=== PATIENT | male | born 1980 | race African-American/Black ===

== ENCOUNTER 2018-11-23 23:42 | Emergency (ER) | payer BC, SELFPAY ==
[2018-11-23 23:43] VITALS: BP 138/89; PULSE 61; RESP 16; TEMP 35.6; O2SAT 100; BMI 26.6
--- NOTE | 2018-11-23 23:57 | ED.VISSUMM ---
- ER Visit Summary Date of Service: 11/23/18 Chief Complaint: Dental pain History of Present Illness: The patient is a 38 M left upper dental pain for the past 4 days. Hot and cold sensitivities. No fevers. Tobacco history. Started on off after chipping his tooth a year ago. Has not seen a dentist. Using ibuprofen and Orajel with no relief, states last ibuprofens 8 PM. No history of gastric ulcers or kidney injury. No history of cirrhosis or liver issues Physical Examination: General: Alert and oriented ?3, no acute distress HEENT: Normocephalic, atraumatic. Moist mucosa membranes. TMs normal bilaterally. There is a chip to tooth #14, tender to percussion. No focal abscess. Airway patent. Neck: supple, nontender. Cardiovascular: Regular rate and rhythm, no murmurs Respiratory: Normal breath sounds, symmetric, no distress Abdomen: Soft, nontender, nondistended Extremities: Nontender, no edema, pulses intact ?4 Neuro: no focal neurological deficits. Test Results: [] Emergency Department Course and Treatment: Patient vitals stable focal dental caries with no abscess. He started on penicillin given Tylenol. He is given follow-up with dental list to choose for definitive care. Continue Tylenol and ibuprofen. Treatment Plan: [] Disposition: Discharge Impression: 1. Odontalgia 2. Dental naeem This note was generated with [employer] dictation software. It may contain incorrect words, spelling, and punctuation that were not noted in review of the chart prior to signing ED Disposition - Plan for ED Patient: Disposition: Home or Assisted Living Diagnosis: Dental caries Instructions: ED Cavity Dental Prescriptions: Penicillin V Potassium 500 mg PO 4X/DAY #40 tablet Referrals: Care Physician,No Primary [Primary Care Provider] - Additional Instructions: Call from dental list to be seen for definitive treatment.
--- NOTE | 2018-11-24 00:02 | ED.DCSUM_ITS ---
- ER Visit Summary Date of Service: 11/23/18 Chief Complaint: Dental pain History of Present Illness: The patient is a 38 M left upper dental pain for the past 4 days. Hot and cold sensitivities. No fevers. Tobacco history. Started on off after chipping his tooth a year ago. Has not seen a dentist. Using ibuprofen and Orajel with no relief, states last ibuprofens 8 PM. No history of gastric ulcers or kidney injury. No history of cirrhosis or liver issues Physical Examination: General: Alert and oriented ?3, no acute distress HEENT: Normocephalic, atraumatic. Moist mucosa membranes. TMs normal bilaterally. There is a chip to tooth #14, tender to percussion. No focal a bscess. Airway patent. Neck: supple, nontender. Cardiovascular: Regular rate and rhythm, no murmurs Respiratory: Normal breath sounds, symmetric, no distress Abdomen: Soft, nontender, nondistended Extremities: Nontender, no edema, pulses intact ?4 Neuro: no focal neurological deficits. Test Results: [] Emergency Department Course and Treatment: Patient vitals stable focal dental caries with no abscess. He started on penicillin given Tylenol. He is given follow-up with dental list to choose for definitive care. Continue Tylenol and ibuprofen. Treatment Plan: [] Disposition: Discharge Impression: 1. Odontalgia 2. Dental naeem This note was generated with [employer] dictation software. It may contain incorrect words, spelling, and punctuation that were not noted in review of the chart prior to signing ED Disposition - Plan for ED Patient: Disposition: Home or Assisted Living Diagnosis: Dental caries Instructions: ED Cavity Dental Prescriptions: Penicillin V Potassium 500 mg PO 4X/DAY #40 tablet Referrals: Care Physician,No Primary [Primary Care Provider] - Additional Instructions: Call from dental list to be seen for definitive treatment.
[2018-11-24] MEDS: Acetaminophen 500 MG Tablet 1000 MG PO (00:03)
[2018-11-24] MEDS: Penicillin Vk 250 MG Tablet 500 MG PO (00:03)
[2018-11-24 00:04] VITALS: PULSE 78; RESP 16; O2SAT 100
== END 2018-11-24 00:05 | disposition home or self-care (01) ==
PROVIDERS: Emergency Provider Emergency Medicine
DX: K02.9 Dental caries, unspecified (principal)
CPT/HCPCS: 99283

== ENCOUNTER 2023-05-06 15:03 | Emergency (ER) | payer MEDICAID, SELFPAY ==
[2023-05-06 15:04] VITALS: BP 223/146; PULSE 92; RESP 16; TEMP 37; O2SAT 100; BMI 26.7
--- NOTE | 2023-05-06 15:37 | EX.ED.DYSGE1 ---
HPI History of Present Illness Chief Complaint: [facility] Medications penicillin V potassium 500 mg tablet 500 mg PO 4X/DAY #40 tabs 11/24/18 [Rx Last Taken Unknown] hydrochlorothiazide 12.5 mg capsule 12.5 mg PO DAILY #30 caps 05/06/23 [Rx Last Taken Unknown] Allergy/AdvReac Type Severity Reaction Status Date / Time acetaminophen [From Vicodin] AdvReac Nausea Verified 05/06/23 15:04 hydrocodone [From Vicodin] AdvReac Nausea Verified 05/06/23 15:04 Social History Smoking Status: Current every day smoker EXAM Physical Exam Const Vital Signs: 05/06/23 15:04 05/06/23 16:26 05/06/23 16:26 Temperature 98.6 F Temperature Source Temporal Pulse Rate 92 80 Respiratory Rate 16 16 Blood Pressure 223/146 H 154/119 H Blood Pressure Mean 171 130 Pulse Ox 100 98 Oxygen Delivery Method Room Air Room Air Room Air MDM MDM MDM Narrative Medical decision making narrative: HISTORY OF PRESENT ILLNESS: 42-year-old male here with elevated blood pressure. He states he noticed some tingling in his left upper extremity approximately 3 hours ago. He denies any headache, focal visual change, focal loss of movement or sensation slurred speech or facial drooping. Denies history of strokes or taking blood thinners. Is never been on antihypertensive medicines. Does have history of using methamphetamine. Last use was 1 week ago. REVIEW OF SYSTEMS: Pertinent positives: Tingling, elevated blood pressure Pertinent negatives: Headache, loss of vision, loss of movement, loss sensation, slurred speech, chest pain, shortness of breath, decreased urination PHYSICAL EXAM: Nursing triage notes reviewed, Vital signs reviewed Constitutional: please see mdm HENT: MMM Eyes: Pupils equal round and reactive to light, Extraocular muscles intact Neck: No stridor, no JVD, full neck ROM Lungs: Clear to auscultation, No wheezing or rales. No increased work of breathing, no conversational dyspnea, no accessory muscle use, no nasal flaring. No respiratory distress noted Heart: Regular rate and rhythm, No murmurs, No rubs and No gallops, 2+ distal pulses (radial, femoral, posterior tibial) in all extremities Abdomen: Soft, there is no tenderness, rigidity, rebound or guarding, no obvious peritoneal signs, no palpable pulsatile abdominal masses, no auscultated abdominal bruit : No CVAT Extremities: No edema Neuro: Alert and oriented x3, neuro exam at baseline, cranial nerves II through XII are intact. No pain with extraocular muscle movement. There is negative test of skew. 5 of 5 strength in upper and lower extremities in flexion extension. Intact sensation to light touch in upper and lower extremity dermatomes. No truncal or extremity ataxia. No dysdiadochokinesia. Normal gait. 2+ reflexes in upper and lower extremities. No meningeal signs. Negative Babinski. NIH of 0. Skin: No rash or lesions noted MEDICAL DECISION MAKING: Chief Complaint: Elevated blood pressure External records reviewed: No recent ED visits or hospitalizations noted Factors affecting care: none Social determinants of health: Methamphetamine a use History obtained from others: none Consults: none [facility] Narrative: Patient was initially hypertensive otherwise hemodynamically stable, afebrile, nontoxic-appearing. Exam without focal neurologic deficits. NIH was 0. Low suspicion for ICH or stroke at this time despite the patient's complaint of tingling as he had no focal deficits and intact neuro vascular exam. I considered acute CVA however patient has a nonfocal neuro exam NIH of 0 and have a low suspicion for acute CVA at this time. I considered the following differential diagnosis: Elevated blood pressure, endorgan damage such as ACS, kidney damage, heart failure. Given the patient's elevated blood pressure both systolic and diastolic did treat with IV labetalol for emergent blood pressure control. Goal was decreasing patient's blood pressure by 20%. Patient blood pressure improved after this intervention. I obtained a broad lab and imaging work-up to further elucidate the etiology of the patient's complaints. ALL IMAGES (IF OBTAINED) HAVE BEEN PERSONALLY REVIEWED AND INTERPRETED BY MYSELF. EKG with normal sinus rhythm, normal axis, normal intervals, no ST or T wave changes to suggest ischemia. No evidence of WPW, Brugada, ARVD. I have personally reviewed the patient's chest x-ray. Chest x-ray is unremarkable for pulmonary edema, pneumothorax, pneumonia or focal cardiopulmonary abnormality. Troponin is negative, no evidence of myocardial ischemia BMP without evidence of significant electrolyte abnormalities, no anion gap, no acute kidney injury. CBC without leukocytosis, severe anemia, no thrombocytopenia. There is no signs of endorgan damage. Patient will be started on hydrochlorothiazide and given a primary doctor follow-up with. He was told to return if symptoms change or worsened. He agreed. Encourage patient to discontinue using methamphetamine or any other illicit drugs. Encouraged him to eat a healthy diet which is low in sodium high in fresh fruits vegetables and lean meats. Encouraged him to exercise regularly which I described as a 30-minute walk 4 times a week. The patient and/or family, caregivers express understanding. The patient and/or family, caregivers agrees with the plan. Shared decision making: I will have a discussion with the patient and or visitors regarding risk/benefits of further testing or admission. They will be made aware of of the risk/benefits inherent in this decision they will be given the opportunity to voice understanding. Total critical care time today provided was at least 0 minutes. This excludes separately billable procedures. Critical care time (if documented) is secondary to the patient having high probability of clinically significant/life threatening deterioration in the patient's condition which required my urgent intervention. Impression: 1. Hypertension 2. History of methamphetamine use Dispo: Discharge Lab Data Labs: Laboratory Results - last 24 hr 05/06/23 15:55 WBC 11.2 H RBC 5.29 Hgb 14.7 Hct 45.6 MCV 86.2 MCH 27.8 MCHC 32.2 RDW Std Deviation 41.9 RDW Coeff of Courtney 13.2 Plt Count 272 MPV 10.2 Immature Gran % (Auto) 0.300 Neut % (Auto) 60.6 Lymph % (Auto) 30.8 Gregory % (Auto) 6.0 Eos % (Auto) 1.9 Baso % (Auto) 0.4 Absolute Neuts (auto) 6.8 Absolute Lymphs (auto) 3.44 Nucleated RBC % 0 Sodium 138 Potassium 3.8 Chloride 106 Carbon Dioxide 26.0 Anion Gap 6 BUN 9 Creatinine 1.04 Estim Creat Clear Calc 90.64 Est GFR (MDRD) Af Amer 99 Est GFR (MDRD) Non-Af 82 BUN/Creatinine Ratio 8.7 L Glucose 107 H Calcium 9.0 Troponin I High Sens 15 Radiography Diagnostic Testing: Clinical Impression(s) from Imaging Studies Chest X-Ray 05/06/23 15:50 IMPRESSION: No radiographic evidence of acute cardiopulmonary disease. Electronically Signed: Wayne Burnett MD at 16:52 EDT , Discharge Plan Triage Chief Complaint: Hypertension ED Provider: Vitaliy Carlson Dx/Rx/DC Orders Instructions: ED High Blood Pressure Hypertension Prescriptions: New hydrochlorothiazide 12.5 mg capsule 12.5 mg PO DAILY Qty: 30 0RF No Action penicillin V potassium 500 MG tablet 500 mg PO 4X/DAY Qty: 40 0RF Primary Care Provider: Care Physician,No Primary Referrals: Shant Jiang MD [Med Staff - Active Staff] - Activity Restrictions/Additional Instructions: Thank you for trusting us with your care today! Please begin taking prescribed blood pressure medicine daily Please return to the emergency department if your symptoms change or worsen. Specifically develop headache, focal numbness, weakness, loss of sensation, chest pain, shortness of breath or decreased urination. Please follow with your primary care physician for further outpatient evaluation and management. Disposition Disposition: Home, Self Care
--- NOTE | 2023-05-06 15:50 | RAD_ITS ---
EXAM: XR CHEST, 1 VIEW CLINICAL INDICATION: Hypertension TECHNIQUE: Frontal view of the chest. COMPARISON: No relevant prior studies available. FINDINGS: LUNGS AND PLEURAL SPACES: Unremarkable. No consolidation or edema. No pneumothorax. No effusion. HEART: Unremarkable. Cardiac silhouette not enlarged. MEDIASTINUM: Central airways and mediastinal contour are unremarkable. BONES/JOINTS: Unremarkable. SOFT TISSUES: Unremarkable. RAD/Chest 1 View (Portable) IMPRESSION: No radiographic evidence of acute cardiopulmonary disease. Electronically Signed: Wayne Burnett MD at 16:52 EDT ,
--- NOTE | 2023-05-06 16:02 | NURSING ---
NO OLD EKG
[2023-05-06] MEDS: Labetalol (Prefilled) 20 MG/4 ML 10 MG IV (16:15)
[2023-05-06 16:26] VITALS: BP 154/119; PULSE 80; RESP 16; O2SAT 98
[2023-05-06 16:26] LABS: Absolute Lymphocyte Count 3.44 X10^3/uL (0.83-4.51); Absolute Neutrophil Count 6.8 X10^3/uL (2.0-7.7); Basophil# 0.05 X10^3/uL; Basophil% 0.4 % (0-1); Eosinophil# 0.21 X10^3/uL; Eosinophils% 1.9 % (0-5); Hematocrit 45.6 % (40-54); Hemoglobin 14.7 g/dL (13.0-16.5); Lymphocyte # 3.44 X10^3/ul (0.83-4.51); Lymphocyte % 30.8 % (19-41); Mean Corp Hgb Conc 32.2 g/dL (32-36); Mean Corpuscular Hgb 27.8 pg (27.0-32.0); Mean Corpuscular Volume 86.2 fL (80-94); Mean Platelet Vol. 10.2 fl (6.2-12.0); Monocyte# 0.67 X10^3/uL; NRBC Flagged by Analyzer 0 % (0-5); Neutrophil # 6.77 X10^3/uL (2.7-7.7); Neutrophil % 60.6 % (47-70); Platelet Count 272 K/mm3 (150-450); RBC Distribution Width CV 13.2 % (11.6-14.6); RBC Distribution Width SD 41.9 fl (35.1-43.9); Red Blood Count 5.29 M/mm3 (4.6-6.2); White Blood Count 11.2 K/mm3 (4.4-11.0)
[2023-05-06 16:37] LABS: Anion Gap 6 (5-15); BUN 9 mg/dL (7-18); BUN/Creat Ratio 8.7 RATIO (10-20); Chloride 106 mmol/L (98-107); Creatinine, Serum 1.04 mg/dL (0.70-1.30); EST Glomerular Filtration Rate 82 mL/min (>60); Est Glom Filt Rate - Afr Amer 99 mL/min (>60); Estimated Creatinine Clearance 90.64 ml/min; Glucose 107 mg/dL (74-106); Potassium 3.8 mmol/L (3.5-5.1); Sodium Level 138 mmol/L (136-145); Troponin-I HS 15 pg/mL (3.0-78.0)
[2023-05-06 18:19] LABS: BNP,B-Type NATRIURETIC PEPTIDE 13.8 pg/mL (0-100)
== END 2023-05-06 17:56 | disposition home or self-care (01) ==
PROVIDERS: Emergency Provider Emergency Medicine; Visit Provider Emergency Medicine
DX: I10 Essential (primary) hypertension (principal); F17.200 Nicotine dependence, unspecified, uncomplicated
CPT/HCPCS: 71045; 80048; 83880; 84484; 85025; 93005; 96374; 99284; A4216

== ENCOUNTER 2023-05-26 04:48 | Emergency (ER) | payer MEDICAID, SELFPAY ==
[2023-05-26 04:49] VITALS: BP 192/125; PULSE 105; RESP 16; TEMP 36.2; O2SAT 100; BMI 25.9
[2023-05-26 05:02] VITALS: BP 190/123; PULSE 100; RESP 16; O2SAT 97
--- NOTE | 2023-05-26 05:22 | EDS_ITS ---
HPI History of Present Illness Chief Complaint: Other, Pain/Inj Informant: patient Narrative Narrative: Patient is a 43-year-old male with past medical history of hypertension as well as occasional methamphetamine use. He reports that he will occasionally get sp asms and noted that about 2 days ago he was having spasms in his right neck which worsened recently. He denies any excessive activity or trauma states he has difficulty turning his head secondary to the spasm along the right side of his neck and with this presents for evaluation. PFSH PFSH Medical History Hypertension Smoker Home Medications penicillin V potassium 500 mg tablet 500 mg PO 4X/DAY #40 tabs 11/24/18 [Rx Last Taken Unknown] hydrochlorothiazide 12.5 mg capsule 12.5 mg PO DAILY #30 caps 05/06/23 [Rx Last Taken Unknown] gabapentin 100 mg capsule 100 mg PO TID 30 days #90 caps 05/26/23 [Rx Last Taken Unknown] methocarbamol 500 mg tablet 1,000 mg (2 x 500 mg) PO 4X/DAY PRN Muscle pain/spasm #56 tabs 05/26/23 [Rx Last Taken Unknown] Allergy/AdvReac Type Severity Reaction Status Date / Time acetaminophen [From Vicodin] AdvReac Nausea Verified 05/06/23 15:04 hydrocodone [From Vicodin] AdvReac Nausea Verified 05/06/23 15:04 Social History Smoking Status: Current every day smoker tobacco type: cigarettes ROS ROS ED Constitutional Constitutional ED: Denies chills or fever(s) Eyes Eyes: Denies change in vision ENT ENT ED: Denies sore throat Cardiovascular Cardiovascular: Denies chest pain Respiratory/Chest Respiratory/Chest: Denies cough or dyspnea Gastrointestinal Gastrointestinal: Denies abdominal pain, diarrhea, nausea or vomiting Genitourinary Genitourinary ED: Denies dysuria Musculoskeletal Musculoskeletal: Reports neck pain Integumentary Denies rash Neurologic Neurologic: Denies headache(s), paresthesias or weakness Hematologic/Lymphatic Hematologic/Lymphatic: Denies easy bleeding or easy bruising EXAM Physical Exam Const Vital Signs: 05/26/23 04:49 05/26/23 05:02 05/26/23 05:38 Temperature 97.2 F L Temperature Source Oral Pulse Rate 105 H 100 97 Respiratory Rate 16 16 16 Blood Pressure 192/125 H 190/123 H 180/125 H Blood Pressure Mean 147 145 143 Pulse Ox 100 97 97 Oxygen Delivery Method Room Air Room Air Positive well nourished and well developed General Appearance ED: well developed HEENT HEENT Narrative: Normocephalic atraumatic Eyes PERRL and EOMs intact bilaterally Neck Neck Narrative: No bony deformity or step-off of the cervical spine no midline pain with palpation There is tenderness and spasm noted of the right paracervical muscle mainly the sternocleidomastoid muscle that worsens with side bending and rotation. No carotid bruit noted Resp normal respiratory effort and clear to auscultation bilaterally Cardio regular rate and regular rhythm Rate: other Other Details: Radial and carotid pulses are equal and symmetric Extremity normal to inspection Extremity Narrative: Bilateral upper extremities are neurovascularly intact; AIN/PIN are intact and normal Neuro oriented x3, CN's II-XII intact bilaterally and no sensory deficits noted Sensorium / Orientation: alert Motor Exam: strength 5/5 throughout Psych mental status grossly normal Skin no rashes or lesions noted Skin Narrative: No erythema or warmth or ecchymosis or abrasion changes to suggest trauma or infection MDM MDM MDM Narrative Medical decision making narrative: Patient presented to the ER hypertensive but has a past medical history of this and was recently worked up for it. Therefore I felt no need for repeat evaluation of the persistent hypertension specialist patient states he has not followed up with a family physician to begin medication. The patient denied any trauma and there are no signs of this on exam and he does not have any midline neck pain and there is no signs of neurologic involvement so I felt no need for CT of the cervical spine as symptoms do not correlate with cervical radiculopathy. History and exam is consistent with a paraspinous or sternocleidomastoid muscle spasm. As patient had blood work done in the last few weeks which shows stable electrolytes I do not feel that he now has clinically significant electrolyte derangement such as hypo or hyperkalemia or hypo or hypernatremia and therefore do not feel need for repeat labs. Patient will be started on Robaxin and gabapentin secondary to his persistent symptoms but at this time as physical exam is indicating this is musculoskeletal in nature and not neurologic or vascular there is no need for further work-up and patient is otherwise safe for discharge. History & Record Review Discussion w/independent historian: Patient Discharge Plan Triage Chief Complaint: Other, Pain/Inj ED Provider: Wayne Oglesby Dx/Rx/DC Orders Clinical Impression: Spasm of cervical paraspinous muscle, Hypertension Instructions: ED Neck Spasm, No Trauma Prescriptions: New methocarbamol 500 mg tablet 1,000 mg PO 4X/DAY PRN (Reason: Muscle pain/spasm) Qty: 56 2RF gabapentin 100 mg capsule 100 mg PO TID 30 Days Qty: 90 0RF No Action penicillin V potassium 500 MG tablet 500 mg PO 4X/DAY Qty: 40 0RF Hold Instructions: not taking hydrochlorothiazide 12.5 mg capsule 12.5 mg PO DAILY Qty: 30 0RF Primary Care Provider: Care Physician,No Primary Referrals: Ava Lozoya DO [Med Staff - Active Staff] - Care Physician,No Primary [Primary Care Provider] - Activity Restrictions/Additional Instructions: He is follow-up with a primary care physician secondary to your persistent hypertension. Continue to stretch and heat your neck to reduce pain and spasm and using medications as directed. You have any further concerns or worsening symptoms please return to the ER for repeat evaluation Disposition Disposition: Home, Self Care Discharge Date/Time: 05/26/23 05:40
[2023-05-26] MEDS: oxyCODONE 5 MG Tablet 10 MG PO (05:35)
[2023-05-26] MEDS: Gabapentin 100 MG Capsule PO (05:35)
[2023-05-26] MEDS: Orphenadrine 60 MG/2 ML Ampul IM (05:36)
[2023-05-26 05:38] VITALS: BP 180/125; PULSE 97; RESP 16; O2SAT 97
== END 2023-05-26 05:40 | disposition home or self-care (01) ==
PROVIDERS: Emergency Provider Emergency Medicine; Visit Provider Emergency Medicine
DX: M62.838 Other muscle spasm (principal); I10 Essential (primary) hypertension; F17.210 Nicotine dependence, cigarettes, uncomplicated
CPT/HCPCS: 96372; 99282

== ENCOUNTER → 2023-09-17 | Outpatient (CLI) | payer MEDICAID, SELFPAY ==
[2023-09-17 13:57] LABS: Absolute Lymphocyte Count 3.34 X10^3/uL (0.83-4.51); Absolute Neutrophil Count 6.6 X10^3/uL (2.0-7.7); Basophil# 0.08 X10^3/uL; Basophil% 0.7 % (0-1); Eosinophil# 0.23 X10^3/uL; Eosinophils% 2.1 % (0-5); Hemoglobin 14.8 g/dL (13.0-16.5); Lymphocyte # 3.34 X10^3/ul (0.83-4.51); Lymphocyte % 30.7 % (19-41); Mean Corp Hgb Conc 32.9 g/dL (32-36); Mean Corpuscular Hgb 28.1 pg (27.0-32.0); Mean Corpuscular Volume 85.4 fL (80-94); Mean Platelet Vol. 9.8 fl (6.2-12.0); Monocyte# 0.62 X10^3/uL; Monocyte% 5.7 % (0-10); NRBC Flagged by Analyzer 0 % (0-5); Neutrophil # 6.58 X10^3/uL (2.7-7.7); Neutrophil % 60.6 % (47-70); Platelet Count 329 K/mm3 (150-450); RBC Distribution Width CV 12.6 % (11.6-14.6); RBC Distribution Width SD 39.4 fl (35.1-43.9); Red Blood Count 5.27 M/mm3 (4.6-6.2); White Blood Count 10.9 K/mm3 (4.4-11.0)
[2023-09-17 14:37] LABS: AST(SGOT) 18 U/L (15-37); Alanine Aminotransfer ALT/SGPT 23 U/L (16-61); Albumin, Serum 3.8 g/dL (3.2-5.0); Alkaline Phosphatase 116 U/L (45-117); Anion Gap 1 (5-15); BUN 13 mg/dL (7-18); BUN/Creat Ratio 12.7 RATIO (10-20); Calcium,Total 9.4 mg/dL (8.5-10.1); Chloride 99 mmol/L (98-107); Creatinine, Serum 1.02 mg/dL (0.70-1.30); EST Glomerular Filtration Rate 84 mL/min (>60); Est Glom Filt Rate - Afr Amer 101 mL/min (>60); Globulin 3.8 g/dL (2.2-4.2); Glucose 115 mg/dL (74-106); PSA,Total - Annual Screen 7.12 ng/mL (0.00-4.00); Potassium 2.9 mmol/L (3.5-5.1); Protein, Total 7.6 g/dL (6.4-8.2); Sodium Level 136 mmol/L (136-145)
--- OUTSIDE RECORDS SUMMARY | 2023-09-17 16:35 | XMS RPT_ITS | CCD ---
Author Name Unknown Address [address] [place] [address] Organization [facility] Care Team Providers Care Supervisor Assembling Name Role Phone Unavailable Primary Care Provider Unavailabl e Results Test Name Value Interpretation Reference Range Facil ity Encounters Encounter Date Encounter Type Care Provider Facility Start: 09-02-2023 Telephone encounter Arpita Log sdon Work Phone: [facility] Clinical Communication Social History Date Type Detail Facility Tobacco smoking stat NHIS Tobacco smoking consumption unknown [facility] Start: 1980 Sex Assigned At Not on file [facility] Gender identity Not on file [facility] Telephone encounter Note 09-02-2023 Telephone Encounter - Macy Toure - 09/02/2023 4:58 PM EST Note Date & Type Note Facility 09-02-2023 Telephone encounter Note Form atting of this note might be different from the original. error [facility] Note 09-02-2023 Telephone Encounter - Macy Toure - 09/02/2023 4:58 PM EST Note Date & Type Note Facility 09-02-2023 Miscellaneous Notes Formattin g of this note might be different from the original. error documented in this encounter [facility] Summary Purpose Family History No Family History Records FoundNo Family History Records Found Advance Directives No Advanced Directives Records FoundNo Advanced Directives Records Found Additional Source Comments (unrecognized sect ion and content) No Status Records FoundNo Status Records Found INFORMATION SOURCE (unrecogn ized section and content) DATE CREATED AUTHOR AUTHOR'S ORGANIZ ATION 09/03/2023 [facility] Reason for Visit (unrecogniz ed section and content) FOR RECORDS PERTAINING TO PATIENTS WHO ARE OR HAVE BEEN ENROLLED IN A CHEMICAL DEPENDENCY/SUBSTANCEABUSE PROGRAM, SOME INFORMATION MAY BE OMITTED. This clinical summary was aggregated from multiple sources. Caution should be exercised in using it in the provision of clinical care. This summary normalizes information from multiple sources, and as a consequence, information in this document may materially change the coding, format and clinical context of patient data. In addition, data may be omitted in some cases. CLINICAL DECISIONS SHOULD BE BASED ON THE PRIMARY CLINICAL RECORDS. [facility]. provides no warranty or guarantee of the accuracy or completeness of information in this document.
== END | disposition home or self-care (01) ==
LOC: LAB 12:14
PROVIDERS: PCP Family Medicine; Referring Provider Family Medicine; Visit Provider Family Medicine
DX: I10 Essential (primary) hypertension (principal); N13.9 Obstructive and reflux uropathy, unspecified; R30.0 Dysuria
CPT/HCPCS: 84153; 36415; 80053; 84443; 85025; 87491; 87591; G0103

== ENCOUNTER 2023-09-20 13:23 | Emergency (ER) | payer MEDICAID, SELFPAY ==
[2023-09-20 13:31] VITALS: BP 115/83; PULSE 87; RESP 18; TEMP 36.4; O2SAT 95
== END 2023-09-20 14:05 | disposition left against medical advice (07) ==
LOC: ED 14:07
PROVIDERS: PCP Family Medicine
DX: R69 Illness, unspecified (principal); Z53.21 Procedure and treatment not carried out due to patient leaving prior to being seen by health care provider

== ENCOUNTER 2024-05-24 09:47 | Emergency (ER) | payer OTHER, SELFPAY ==
[2024-05-24 09:48] VITALS: BP 193/131; PULSE 104; RESP 18; TEMP 36.6; O2SAT 99; BMI 23.9
--- NOTE | 2024-05-24 10:05 | ED.VIS.BACK ---
HPI History of Present Illness Chief Complaint: Back Narrative Narrative: Chief complaint and HPI: Back pain. 44-year-old male presents for evaluation of right low back pain after an injury multiple weeks ago. 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 He states he landed on his right side. Patient states he did let his boss know. Patient states since then he has been having right-sided low back pain. States it is difficult to sleep secondary to pain. He denies any OTC medications such as Tylenol ibuprofen. Has not followed up with a doctor. Denies numbness, weakness, urinary retention, stool or urinary incontinence, saddle anesthesia, recent invasive manipulation of the spine, intravenous drug use, or fever. Review of systems: See HPI Medications: As listed on the chart Allergies: As listed on the chart PFSH: Per chart Vital signs: As listed on the chart. Reviewed. Physical exam: Gen: A&O x3, NAD Head: Normocephalic, atraumatic Eyes: No sclera icterus, conjunctiva clear, PERRL, EOMI ENT: moist mucous membranes Neck: Trachea midline, No JVD, Nontender CV: RRR, no murmurs Resp: Lungs CTA BL, no w/r/c GI: Abd soft, non-distended, non-tender, no r/r/g Musc: Full ROM, no deformity, no midline spinal tenderness, no bony step-offs, patient has tense paraspinal musculature of the right lumbar spine-palpation recreates the patient's pain, no obvious signs of injury Skin: Warm, dry, intact Neuro: Alert, oriented, grossly intact, sensation intact Psych: Cooperative, appropriate mood and affect [facility] Medical History (Updated 06/03/23 @ 00:01 by Background [place]) Smoker Hypertension Home Medications ?Medication ?Instructions ?Recorded ?Last Taken ?Type penicillin V potassium 500 mg 500 mg PO 4X/DAY #40 tabs 11/24/18 Unknown Rx tablet hydrochlorothiazide 12.5 mg capsule 12.5 mg PO DAILY #30 caps 05/06/23 Unknown Rx gabapentin 100 mg capsule 100 mg PO TID 30 days #90 caps 05/26/23 Unknown Rx methocarbamol 500 mg tablet 1,000 mg (2 x 500 mg) PO 4X/DAY 05/26/23 Unknown Rx PRN Muscle pain/spasm #56 tabs Allergy/AdvReac Type Severity Reaction Status Date / Time acetaminophen (From Vicodin) AdvReac Nausea Verified 09/20/23 13:31 hydrocodone (From Vicodin) AdvReac Nausea Verified 09/20/23 13:31 Social History Smoking Status: Current every day smoker tobacco type: cigarettes EXAM Physical Exam Const Vital Signs: 05/24/24 09:48 Temperature 97.9 F Temperature Source Oral Pulse Rate 104 H Respiratory Rate 18 Blood Pressure 193/131 H Blood Pressure Mean 151 Pulse Ox 99 Oxygen Delivery Method Room Air MDM MDM MDM Narrative Medical decision making narrative: 44-year-old male presents for evaluation of right lumbar back pain after a fall several weeks ago. Differential diagnosis includes back strain, muscle spasm, mechanical fall. There is nothing to suggest any infectious etiology. There is no neurologic findings to suggest an acute cauda equina syndrome, infectious etiology, or any acute radiculopathy. At this point I do not feel any emergent imaging such as x-rays or MRI are warranted. Patient symptoms will be treated. Patient did drive today therefore muscle relaxer withheld. IM Toradol ordered. Patient will be given a prescription for Flexeril as needed. He was educated on ibuprofen and Tylenol for pain. He was educated on RICE therapy. He was educated on using IcyHot as well as a heating pad. He was told to follow-up with his PCP. He confirmed understanding the plan. Impression: 1. Right lumbar back strain 2. Mechanical fall Discharge Plan Triage Chief Complaint: Back ED Provider: Mac Wilburn Dx/Rx/DC Orders Prescriptions: No Action penicillin V potassium 500 MG tablet 500 mg PO 4X/DAY Qty: 40 0RF methocarbamol 500 mg tablet 1,000 mg PO 4X/DAY PRN (Reason: Muscle pain/spasm) Qty: 56 2RF gabapentin 100 mg capsule 100 mg PO TID 30 Days Qty: 90 0RF hydrochlorothiazide 12.5 mg capsule 12.5 mg PO DAILY Qty: 30 0RF Primary Care Provider: Arpita Eddy Referrals: Arpita Eddy, [Primary Care Provider] - Print Language: Mohawk
[2024-05-24] MEDS: Ketorolac 30 MG/ML Syringe IM (10:16)
[2024-05-24 10:43] VITALS: BP 118/64; PULSE 71; RESP 15; TEMP 36.8; O2SAT 100
== END 2024-05-24 10:44 | disposition home or self-care (01) ==
LOC: ED 10:37
PROVIDERS: Emergency Provider Surgery; PCP Family Medicine; Visit Provider Surgery
DX: S39.012A Strain of muscle, fascia and tendon of lower back, initial encounter (principal); F17.210 Nicotine dependence, cigarettes, uncomplicated; X58.XXXA Exposure to other specified factors, initial encounter
CPT/HCPCS: 96372; 99282